=== PATIENT | male | born 1975 | race Caucasian/White ===

== ENCOUNTER 2022-02-07 12:40 | Emergency (ER) | payer OTHER ==
[~2022-02-07] VITALS: Ht 182.9 cm; Wt 76.2 kg
[2022-02-07] MEDS ORDERED: LISINOPRIL10 MG PO (12:46)
--- NOTE | 2022-02-09 13:38 | EKG ---
[facility] [address] [facility] [place] [address] Signed Normal sinus rhythm Low voltage QRS Left anterior fascicular block Inferior infarct , age undetermined Abnormal ECG No previous ECGs available Confirmed by JERONIMO NATHAN MD ([id number]) on 02/09/2022 1:38:39 PM Electronically Signed By: JERONIMO NATHAN MD 02/09/22 1338 PATIENT NAME: ANNAMELISSA Electrocardiogram DATE OF : 73 PHYSICIAN: JERONIMO NATHAN MD REPORT #: [id number] REPORT IS CONFIDENTIAL AND NOT TO BE RELEASED WITHOUT AUTHORIZATION
== END 2022-02-07 14:08 | disposition home or self-care (01) ==
LOC: ED 12:40
DX: R07.89 Other chest pain (principal); F10.10 Alcohol abuse, uncomplicated; Z79.899 Other long term (current) drug therapy
CPT/HCPCS: 71046; 93005; 93010; 99285-25

== ENCOUNTER 2025-03-06 16:07 | Observation (INO) | payer OTHER ==
[~2025-03-06] VITALS: Ht 182.9 cm; Wt 75.2 kg
[~2025-03-06 16:07] MED LIST: ZESTRIL20 MG PO
[2025-03-06] MEDS ORDERED: VENTOLIN HFA18 GM (16:29)
[2025-03-06] MEDS ORDERED: SILDENAFIL20 MG PO (16:29)
[2025-03-06] MEDS ORDERED: SODIUM CHLORIDE 0.9% 500 ML IV ONE (16:30)
[2025-03-06 16:58] LABS: EOSINOPHILS 0.7 % (0.8-7.0); HEMATOCRIT 37.4 % (40.1-51.0); HEMOGLOBIN 13.1 g/dL (13.7-17.5); LYMPHOCYTES 10.5 % (21.8-53.1); MCV 97.1 fL (79.0-92.2); MONOCYTES 12.3 % (5.3-12.2); NEUTROPHILS 75.2 % (34.0-67.9); PLATELET COUNT 297 K/uL (163-337); RBC 3.85 M/uL (4.63-6.08)
[2025-03-06 17:14] LABS: ALBUMIN 4.1 g/dL (3.4-5.0); ALBUMIN/GLOBULIN RATIO 0.98 (1.1-2.4); ANION GAP 16.3 (7-21); BILIRUBIN, TOTAL 0.9 mg/dL (0.2-1.0); BUN/CREATININE RATIO 6.74 (6.0-28.6); CALCIUM 9.6 mg/dL (8.5-10.1); CREATININE, SERUM 0.89 mg/dL (0.70-1.30); MAGNESIUM 1.8 mg/dL (1.8-2.4); POTASSIUM 4.3 mmol/L (3.5-5.1); PROTEIN, TOTAL 8.3 g/dL (6.4-8.2)
[2025-03-06] MEDS ORDERED: MORPHINE SULFATE 4 MG/ML VIAL IV ONE ×2 (17:15→17:45)
[2025-03-06] MEDS ORDERED: MIDAZOLAM HCL 2 MG/2 ML VIAL IV ONE ×2 (17:30→17:45)
[2025-03-06] MEDS ORDERED: ondansetron HCL 4 MG/2 ML VIAL IV PRN (17:30)
[2025-03-06] MEDS ORDERED: LORazepam 2 MG/ML VIAL IV SCH (18:00)
[2025-03-06] MEDS ORDERED: LORazepam 2 MG TABLET PO SCH (18:00)
[2025-03-06] MEDS ORDERED: fentaNYL citrate 100 MCG/2 ML VIAL IV ONE (18:45)
[2025-03-06] MEDS ORDERED: fentaNYL citrate 100 MCG/2 ML VIAL ONE (18:47)
[2025-03-06] MEDS ORDERED: MORPHINE SULFATE 4 MG/ML VIAL IV PRN ×2 (19:00→19:15)
[2025-03-06] MEDS ORDERED: HYDROCODONE/ACETA 5/325 TAB PO PRN (19:00)
[2025-03-06 19:08] VITALS: BP 125/89
[2025-03-06] MEDS ORDERED: PHENOBARBITAL SOD 130 MG/ML VIAL IV ONE (19:15)
[2025-03-06] MEDS ORDERED: LORazepam 2 MG/ML VIAL IV/IM PRN (19:15)
[2025-03-06] MEDS ORDERED: THIAMINE HCL 200 MG/2 ML VIAL IV ONE (19:15)
[2025-03-06] MEDS ORDERED: FOLIC ACID 1 MG/0.2 ML ML IV ONE (19:15)
[2025-03-06] MEDS ORDERED: OXYCODONE HCL 5 MG TAB PO PRN ×2 (19:15→21:00)
[2025-03-06 19:30] VITALS: BP 135/83
[2025-03-06 20:00] VITALS: BP 120/83
[2025-03-06] MEDS ORDERED: HEParin SOD (PORCINE) 5,000 UNIT/ML SDV SUB-Q SCH (21:00)
[2025-03-06 21:30] VITALS: BP 117/81
[2025-03-06 22:00] VITALS: BP 123/82
[2025-03-06 23:00] VITALS: BP 125/82
[2025-03-07] VITALS (9 sets, daily range): BP systolic 115–135; BP diastolic 72–92
[2025-03-07 05:49] LABS: BASOPHILS 0.7 % (0.2-1.2); EOSINOPHILS 1.8 % (0.8-7.0); HEMATOCRIT 38.2 % (40.1-51.0); HEMOGLOBIN 13.3 g/dL (13.7-17.5); LYMPHOCYTES 12.8 % (21.8-53.1); MCH 34.1 PG (25.7-32.2); MCHC 34.8 g/dL (32.3-36.5); MCV 97.9 fL (79.0-92.2); NEUTROPHILS 71.3 % (34.0-67.9); PLATELET COUNT 277 K/uL (163-337)
[2025-03-07 06:10] LABS: BUN/CREATININE RATIO 12.34 (6.0-28.6); CALCIUM 9.1 mg/dL (8.5-10.1); CREATININE, SERUM 0.81 mg/dL (0.70-1.30); MAGNESIUM 1.9 mg/dL (1.8-2.4); PHOSPHORUS, INORGANIC 3.9 mg/dL (2.5-4.9)
[2025-03-07 07:54] LABS: ALBUMIN 3.6 g/dL (3.4-5.0); ALBUMIN/GLOBULIN RATIO 0.88 (1.1-2.4); BILIRUBIN, DIRECT 0.3 mg/dL (0.0-0.2); BILIRUBIN, INDIRECT 0.7 (0.1-0.7); PROTEIN, TOTAL 7.7 g/dL (6.4-8.2)
[2025-03-07] MEDS ORDERED: MULTIVITAMINS THERAPEUTIC 1 EA TAB PO SCH (08:00)
[2025-03-07] MEDS ORDERED: LORazepam 1 MG TAB PO PRN (08:45)
[2025-03-07] MEDS ORDERED: ENOXAPARIN SODIUM 40 MG/0.4 ML SYR SUB-Q SCH (10:12)
[2025-03-07] MEDS ORDERED: POLYETHYLENE GLYCOL 3350 1 PACKET PO ONE (10:15)
[2025-03-07] MEDS ORDERED: PHARMACY RENAL DOSE ADJUSTMENT 1 DOSE MISC PO SCH (12:00)
[2025-03-07] MEDS ORDERED: VENTOLIN HFA18 GM INH (15:15)
[2025-03-08] VITALS (8 sets, daily range): BP systolic 107–140; BP diastolic 52–90
[2025-03-08 05:27] LABS: BASOPHILS 0.9 % (0.2-1.2); EOSINOPHILS 2.7 % (0.8-7.0); HEMATOCRIT 38.8 % (40.1-51.0); HEMOGLOBIN 13.2 g/dL (13.7-17.5); LYMPHOCYTES 18.4 % (21.8-53.1); MCH 33.4 PG (25.7-32.2); MCV 98.2 fL (79.0-92.2); MONOCYTES 13.2 % (5.3-12.2); NEUTROPHILS 64.5 % (34.0-67.9); PLATELET COUNT 276 K/uL (163-337); RBC 3.95 M/uL (4.63-6.08)
[2025-03-08 05:44] LABS: ALBUMIN 3.5 g/dL (3.4-5.0); ALBUMIN/GLOBULIN RATIO 0.85 (1.1-2.4); ANION GAP 14.6 (7-21); BILIRUBIN, TOTAL 0.8 mg/dL (0.2-1.0); BUN/CREATININE RATIO 7.14 (6.0-28.6); CALCIUM 9.2 mg/dL (8.5-10.1); CREATININE, SERUM 0.84 mg/dL (0.70-1.30); MAGNESIUM 1.9 mg/dL (1.8-2.4); PHOSPHORUS, INORGANIC 3.8 mg/dL (2.5-4.9); POTASSIUM 3.6 mmol/L (3.5-5.1); PROTEIN, TOTAL 7.6 g/dL (6.4-8.2)
[2025-03-08] MEDS ORDERED: POLYETHYLENE GLYCOL 3350 1 PACKET PO ONE (07:30)
[2025-03-08] MEDS ORDERED: POTASSIUM CHLORIDE 10 MEQ TABCR PO ONE (07:30)
[2025-03-08] MEDS ORDERED: LIDOCAINE HCL 4% 1 EACH PATCH TD SCH (07:30)
[2025-03-08] MEDS ORDERED: THIAMINE HCL 100 MG TAB PO SCH (08:00)
[2025-03-08] MEDS ORDERED: FOLIC ACID 1 MG TAB PO SCH (08:00)
--- NOTE | 2025-03-08 14:04 | EKG ---
[facility] [address] [facility] [address] [facility] [place], [place] [address] Signed Normal sinus rhythm Left axis deviation Low voltage QRS Possible Inferior infarct (cited on or before 07-FEB-2022) Abnormal ECG When compared with ECG of 07-FEB-2022 12:46, No significant change was found Confirmed by Gus Bryant MD ([id number] on 03/08/2025 2:04:44 PM Electronically Signed By: GUS BRYANT MD 03/08/25 1404 PATIENT NAME: MELISSA CASTILLO ALLA Electrocardiogram DATE OF : 73 PHYSICIAN: GUS BRYANT MD REPORT #: [id number] REPORT IS CONFIDENTIAL AND NOT TO BE RELEASED WITHOUT AUTHORIZATION
[2025-03-08] MEDS ORDERED: LIDOCAINE PATCH REMOVAL 1 EA TD SCH (21:00)
[2025-03-09 05:16] LABS: BASOPHILS 0.8 % (0.2-1.2); EOSINOPHILS 3.2 % (0.8-7.0); HEMATOCRIT 35.3 % (40.1-51.0); HEMOGLOBIN 12.2 g/dL (13.7-17.5); LYMPHOCYTES 15.9 % (21.8-53.1); MCH 33.8 PG (25.7-32.2); MCHC 34.6 g/dL (32.3-36.5); MCV 97.8 fL (79.0-92.2); MONOCYTES 12.9 % (5.3-12.2); NEUTROPHILS 66.7 % (34.0-67.9); PLATELET COUNT 265 K/uL (163-337); RBC 3.61 M/uL (4.63-6.08)
[2025-03-09 05:30] VITALS: BP 133/86
[2025-03-09 05:38] LABS: ALBUMIN 3.4 g/dL (3.4-5.0); ALBUMIN/GLOBULIN RATIO 0.85 (1.1-2.4); ANION GAP 13.5 (7-21); BILIRUBIN, TOTAL 0.5 mg/dL (0.2-1.0); BUN/CREATININE RATIO 13.15 (6.0-28.6); CALCIUM 9.1 mg/dL (8.5-10.1); CREATININE, SERUM 0.76 mg/dL (0.70-1.30); POTASSIUM 3.5 mmol/L (3.5-5.1); PROTEIN, TOTAL 7.4 g/dL (6.4-8.2)
[2025-03-09] MEDS ORDERED: MORPHINE SULFATE 4 MG/ML VIAL IV ONE (08:00)
[2025-03-09 09:23] VITALS: BP 119/85
[2025-03-09 09:45] VITALS: BP 119/85
[2025-03-09 13:05] VITALS: BP 120/81
[2025-03-09 13:47] VITALS: BP 120/81
[2025-03-09 14:19] VITALS: BP 140/92
[2025-03-10 17:24] LABS: HEPATITIS A ANTIBODY, IGM Negative (Negative); HEPATITIS B CORE ANTIBODY, IGM Negative (Negative); HEPATITIS B SURFACE ANTIGEN Negative (Negative); HEPATITIS C AB CIA INTERP Negative (Negative)
== END 2025-03-09 14:56 | disposition home or self-care (01) ==
LOC: ED 16:07 → CCU 16:08 → MS 03-08 16:28 → CCU 03-08 16:42 → MS 03-08 17:30
PROVIDERS: Emergency Medicine; ADMIT Student in an Organized Health Care Education/Training Program; ATTEND Student in an Organized Health Care Education/Training Program
DX: J93.9 Pneumothorax, unspecified (principal); F10.139 Alcohol abuse with withdrawal, unspecified; E87.1 Hypo-osmolality and hyponatremia; R74.01 Elevation of levels of liver transaminase levels; I10 Essential (primary) hypertension; K59.00 Constipation, unspecified; Z87.891 Personal history of nicotine dependence; Z79.899 Other long term (current) drug therapy; Y90.1 Blood alcohol level of 20-39 mg/100 ml
CPT/HCPCS: 32551; 36415; 71045; 80048; 80053; 80074; 80076; 83735; 84100; 85025; 93005; 93010; 94799; 99285-25; A9270; A9270-GY; G0480; J1650; J2250; J2270; J3010; J3411; J7040